=== PATIENT | female | born 1970 | race Caucasian/White ===

== ENCOUNTER 2017-04-01 17:21 | Emergency (ER) | payer SELFPAY ==
[2017-04-01] MEDS ORDERED: diphenhydrAMINE 25 MG CAP ONE ×2 (18:06→19:27)
[2017-04-01] MEDS ORDERED: Lorazepam 1 MG TAB ONE (19:27)
[2017-04-01] MEDS ORDERED: HYDROcodone/Acetaminophen 10/325 mg Tablet ONE (19:27)
== END 2017-04-01 19:31 | disposition home or self-care (01) ==
LOC: MADERS 17:21
DX: T43.015A Adverse effect of tricyclic antidepressants, initial encounter (principal); I10 Essential (primary) hypertension; F17.210 Nicotine dependence, cigarettes, uncomplicated; Z79.891 Long term (current) use of opiate analgesic; Z79.899 Other long term (current) drug therapy
CPT/HCPCS: 99284